=== PATIENT | female | born 1965 | race Caucasian/White ===

== ENCOUNTER 2017-04-26 10:38 | Emergency (ER) | payer OTHER ==
[~2017-04-26] VITALS: Ht 157.5 cm; Wt 89.0 kg
[~2017-04-26 10:38] MED LIST: DICL75TA2 PO; HYDR-3498 PO; HYDR-3581 PO; INSU100V19 SC; LOSA25TA2 PO; OSLT75C PO; PROM25TA14 PO; SERT50TA6 PO; ZOC10 PO
[2017-04-26 10:40] VITALS: Ht 157.5 cm; Wt 89.0 kg
--- NOTE | 2017-04-26 11:31 | ERA ---
ER Documentation Chief Complaint Date/Time DATE: 04/26/17 TIME: 11:30 Chief Complaint cwp x 3 days HPI The patient is a 51-year-old female, presenting with acute on chronic chest wall pain due to her fibromyalgia. She was seen by her physician last week who referred her to see a chronic pain management physician. The pain is worse with movement, chronic. She denies fever, chills, neck pain, chest pain with exertion/vomiting/palpitation, dysuria, abdominal pain, vomiting. She does not smoke nor drink Past medical history: Attention, dyslipidemia, diabetes mellitus, fibromyalgia Past surgical history: 2 , eyes ROS All systems reviewed and are negative except as per history of present illness. Medications Home Meds Active Scripts Tramadol HCl (Tramadol HCl) 50 Mg Tablet, 50 MG PO Q6, #20 TAB Prov:DOMONIQUE CORTEZ MD 04/26/17 Promethazine Hcl* (Phenergan*) 25 Mg Tablet, 25 MG PO Q6 Y for NAUSEA AND/OR VOMITING, #6 TAB Prov:MONIK GROVE DO 10/19/15 Hydrocodone Bit-Acetaminophen* ([place]*) 5-325 Mg Tab, 1 TAB PO Q6 Y for PAIN, # 7 TAB Prov:MONIK GROVE DO 10/19/15 Oseltamivir Phosphate* (Tamiflu*) 75 Mg Capsule, 75 MG PO BID for 5 Days, CAP Prov:MONIK GROVE DO 10/19/15 Reported Medications Insulin Glargine,Hum.rec.anlog (Lantus) 100 U/Ml Vial, 30 UNITS SC QHS 04/13/12 Diclofenac Sodium* (Diclofenac Sodium*) 75 Mg Tablet.dr, 1 TAB PO BID 04/13/12 Losartan Potassium* (Cozaar*) 25 Mg Tablet, 1 TAB PO DAILY 04/13/12 Simvastatin (Simvastatin) 10 Mg Tablet, 1 TAB PO DAILY 04/13/12 Sertraline Hcl* (Sertraline Hcl*) 50 Mg Tablet, 1 TAB PO DAILY, 0 Refills 11/09/10 Hydroxyzine Hcl* (Atarax*) 10 Mg Tab, 25 MG PO DAILY, 0 Refills 11/09/10 Allergies Allergies: Coded Allergies: Penicillins (Verified Allergy, Severe, RASH, 09/01/14) PMhx/Soc History of Surgery: Yes (C-SECTIONS X 2) Anesthesia Reaction: No Hx Neurological Disorder: No Hx Respiratory Disorders: No Hx Cardiac Disorders: Yes (HTN, HIGH CHOLESTEROL) Hx Psychiatric Problems: No Hx Miscellaneous Medical Probl: Yes (DM) Hx Alcohol Use: No Hx Substance Use: No Hx Tobacco Use: No Physical Exam Vitals Vital Signs Date Time Temp Pulse Resp B/P Pulse Ox O2 Delivery O2 Flow Rate FiO2 04/26/17 10:40 98.1 18 18 161/79 99 Physical Exam Const: No acute distress. Head: Atraumatic. Eyes: Normal Conjunctiva. ENT: Normal External Ears, Nose and Mouth. Neck: Full range of motion. No meningismus. Resp: Clear to auscultation bilaterally. Cardio: Regular rate and rhythm.Chest wall tenderness with palpation, no crepitus Abd: Soft, non distended, normal bowel sounds, non tender. Skin: No petechiae or rashes. Back: No midline or flank tenderness. Ext: No cyanosis, or edema. Neur: Awake and alert. No focal deficit Psych: Normal Mood and Affect. Results 24 hrs Current Medications Medications (Trade) Dose Ordered Sig/Ely Route PRN Reason Start Time Stop Time Status Last Admin Dose Admin Morphine Sulfate (morphine) 4 mg ONCE ONCE IM 04/26/17 12:00 04/26/17 12:01 DC Ondansetron HCl (Zofran Odt) 4 mg ONCE STAT ODT 04/26/17 11:37 04/26/17 11:40 DC Procedures/MDM EKG: Read by emergency physician Rate/Rhythm: Normal Sinus Rhythm 85 beats/min QRS, ST, T-waves: No ST elevation, no T inversion Impression: Normal EKG [place] [id number] Radiology Main Line: [phone] DIAGNOSTIC IMAGING REPORT Patient: PHYLLIS FARIAS : 1965 Age: 51 Sex: F MR #: [id number] DOS: 04/26/17 1136 Ordering MD: DOMONIQUE CORTEZ MD Location: E/R Room/Bed: PROCEDURE: XR Chest AP portable CLINICAL INDICATION: Chest wall pain TECHNIQUE: An AP portable radiograph of the chest was submitted. COMPARISON: 07/03/2009 FINDINGS: Support Hardware: None Cardiovascular: The cardiovascular silhouette appears unremarkable. Lung Byers: The lung byers appear clear with no nodule, alveolar infiltrate, or interstitial prominence evident. Pleural Spaces: No pneumothorax or pleural effusion is identified. Osseous Structures: The osseous structures appear intact. Soft Tissues: The soft tissues appear generous. IMPRESSION: Stable and unremarkable portable chest. Physician Nelda Date Time Electronically viewed and signed by Enoch Orantes Physician on 04/26/2017 11:55 RH/ CC: DOMONIQUE CORTEZ MD MEDICAL MAKING DECISION: The patient is 51-year-old female, presenting with fibromyalgia. She was treated with morphine 4 mg IM and Zofran ODT with good response. I do not suspect ACS. The differential diagnoses considered include but are not limited to acute coronary syndrome, acute myocardial infarction, pericarditis, pulmonary embolism , aortic dissection, pneumonia, pleural effusion, pneumothorax, GERD, chest wall pain. Departure Diagnosis: Primary Impression: Fibromyalgia Condition: Good Comments She was discharged with tramadol I discussed the findings with the patient. I advised the patient to follow-up with her chronic pain management physician in about 1-2 days, sooner if needed and return if any concern. DOMONIQUE CORTEZ MD Apr 26, 2017 11:31
[2017-04-26] MEDS ORDERED: ONDANSETRON (ODT) 4 MG TAB ODT STA (11:37)
--- NOTE | 2017-04-26 11:55 | RADRPT ---
PROCEDURE: XR Chest AP portable CLINICAL INDICATION: Chest wall pain TECHNIQUE: An AP portable radiograph of the chest was submitted. COMPARISON: 07/03/2009 FINDINGS: Support Hardware: None Cardiovascular: The cardiovascular silhouette appears unremarkable. Lung Cornelius: The lung cornelius appear clear with no nodule, alveolar infiltrate, or interstitial promi nence evident. Pleural Spaces: No pneumothorax or pleural effusion is identified. Osseous Structures: The osseous structures appear intact. Soft Tissues: The soft tissues appear generous. IMPRESSION: Stable and unremarkable portable chest. Physician Nelda Date Time Electronically viewed and signed by Enoch Orantes Physician on 04/26/2017 11:55 RH/
[2017-04-26] MEDS ORDERED: morphine 10 MG INJ IM ONE ×3 (12:00→13:00)
[2017-04-26] MEDS ORDERED: TRAM50TA2 PO ×2 (12:02→12:11)
[2017-04-26] MEDS ORDERED: HYDR-906 PO (12:19)
== END 2017-04-26 12:48 | disposition home or self-care (01) ==
LOC: E/R 10:38
DX: M79.7 Fibromyalgia (principal); E11.9 Type 2 diabetes mellitus without complications; I10 Essential (primary) hypertension; Z79.4 Long term (current) use of insulin
CPT/HCPCS: 71010; 93005; 96372; 99284; J2270